=== PATIENT | female | born 1960 | race Caucasian/White ===

== ENCOUNTER 2017-04-28 09:23 | Emergency (ER) | payer OTHER ==
[~2017-04-28 09:23] MED LIST: LAMO100 PO; LORTA5 PO
[2017-04-28 09:25] VITALS: BP 142/81; PULSE 78; RESP 18; TEMP 97.5; O2SAT 98
[2017-04-28] MEDS ORDERED: ANXIETY MED (10:24)
[2017-04-28] MEDS ORDERED: LAMO100T PO (10:24)
--- NOTE | 2017-04-28 10:40 | PD ---
HPI Chief Complaint: Head Injury Time Seen by Provider: 10:29 Travel History International Travel<30 days: No Contact w/Intl Traveler<30days: No Traveled to known affect area: No History of Present Illness HPI This is a 56-year-old female who presents to the emergency department having had a large piece of plywood fall on top of her head yesterday. Since then she' s had a mild headache, constant, associated with some nausea and dizziness, with no difficulty walking or talking. She said she didn't lose consciousness at the time. Her neck is hurting. She is not on a blood thinners but she does have a history of prior traumatic brain injury. PFSH Past Medical History Asthma: No Blood Disorders: No Anxiety: Yes Depression: Yes Heart Rhythm Problems: No Cancer: No Cardiovascular Problems: No High Cholesterol: No Chemotherapy: No Chest Pain: No Congestive Heart Failure: No COPD: No Diabetes: No Endocrine: No Gastrointestinal Disorders: Yes Genitourinary: No Hiatal Hernia: Yes (UMBILICAL HERNIA-HAD IT REPAIRED) Immune Disorder: No Musculoskeletal: No Neurologic: No Psychiatric: No Reproductive: No Respiratory: No Radiation Therapy: No Seizures: Yes (PER PT LAST SEIZURE 2004) Sleep Apnea: No Thyroid Disease: No Tetanus Vaccination: < 5 Years ?: Not Past Surgical History Appendectomy: Yes Other Surgery: Yes (hernia) Social History Alcohol Use: Yes (OCCASIONALLY) Tobacco Use: Yes (OCCASIONALLY) Substance Use: No Allergies-Medications (Allergen,Severity, Reaction): Coded Allergies: No Known Allergies (Unverified Adverse Reaction, Unknown, 04/28/17) Reported Meds & Prescriptions Reported Meds & Active Scripts Active Reported [Anxiety Med] Lamotrigine 100 Mg Tab 100 Mg PO BID Review of Systems Except as stated in HPI: all other systems reviewed are Neg Physical Exam Narrative GENERAL:Well appearing, no acute distress SKIN: Large hematoma on the right upper forehead. HEAD: Atraumatic. Normocephalic. EYES: Pupils equal and round. No injection or drainage. ENT: Moist mucous membranes NECK: Focally tender along the mid cervical spine. CARDIOVASCULAR: Regular rate and rhythm. No murmur appreciated. RESPIRATORY: Clear to auscultation. Breath sounds equal bilaterally. GASTROINTESTINAL: Abdomen soft, non-tender, nondistended. MUSCULOSKELETAL: No obvious deformities. NEUROLOGICAL: Awake and alert. No obvious cranial nerve deficits. No dysarthria or aphasia. Moving all extremities. PSYCHIATRIC: Appropriate mood and affect; insight and judgment normal. Data Data Last Documented VS Vital Signs Date Time Temp Pulse Resp B/P (MAP) Pulse Ox O2 Delivery O2 Flow Rate FiO2 04/28/17 09:25 97.5 78 18 142/81 (101) [address] Brain W/O Iv Contrast(Rout) (04/28/17 ) Ct Cerv Spine W/O Contrast (04/28/17 ) Acetaminophen (Tylenol) (04/28/17 10:45) MDM Medical Decision Making Medical Screen Exam Complete: Yes Emergency Medical Condition: Yes Interpretation(s) Last [address] 04/28/17 0000 Signed Impressions: Service Date/Time: Friday, April 28, 2017 11:14 - CONCLUSION: 1. No acute intracranial abnormality is identified. 2. There is encephalomalacia in the frontal lobe bilaterally, left greater than right. This could be related to prior trauma or infarct. Poli Banks MD Cervical Spine CT 04/28/17 0000 Signed Impressions: Service Date/Time: Friday, April 28, 2017 11:14 - CONCLUSION: No acute cervical spine abnormality is identified. Degenerative changes are present. Poli Banks MD Differential Diagnosis Intracranial hemorrhage, cervical spine fracture, cervical sprain, hematoma Narrative Course This is a 56-year-old female who presents to the emergency department having had a large piece of plywood fell on her head yesterday. Given the axial loading nature of the injury a CT of the cervical spine was obtained which was reassuring. CT of the head was obtained which demonstrates evidence of encephalomalacia which is likely secondary to the patient's history of traumatic brain injury but is otherwise reassuring with no evidence of acute bleed. Patient will be discharged home. Diagnosis Primary Impression: Closed head injury Qualified Codes: S09.90XA - Unspecified injury of head, initial encounter Patient Instructions: General Instructions Additional Instructions: If you develop headache, difficulty walking, difficulty talking, weakness, numbness, lightheadedness or severe pain return to the emergency department. If you are not improved in 2 days follow up with your primary care physician without fail. Med/Other Pt SpecificInfo: No Change to Meds Disposition: 01 DISCHARGE HOME Condition: Stable Argelia Cavazos MD Apr 28, 2017 10:40
[2017-04-28] MEDS ORDERED: ACETAMINOPHEN 500 MG CPLT PO ONE (10:45)
--- NOTE | 2017-04-28 11:35 | RADRPT ---
EXAM DATE/TIME: 04/28/2017 11:14 [facility] COMPARISON: No previous studies available for comparison. INDICATIONS : Plywood fell on patients head yesterday RADIATION DOSE: 29.75 CTDIvol (mGy) MEDICAL HISTORY : Seizures. Hernia, hiatal. SURGICAL HISTORY : None. ENCOUNTER: Initial ACUITY: 1 day PAIN SCALE: 2/10 LOCATION: cranial TECHNIQUE: Multiple contiguous axial images were obtained of the head. Using automated exposure control and adj ustment of the mA and/or kV according to patient size, radiation dose was kept as low as reasonably a chievable to obtain optimal diagnostic quality images. DICOM format image data is available electro nically for review and comparison. FINDINGS: CEREBRUM: There is encephalomalacia in the left frontal lobe and right orbitofrontal cortex. There is mild asso ciated ex vacuo dilatation of the left frontal horn. Ventricles are otherwise normal. No evidence of midline shift, mass lesion, hemorrhage or acute infarction. No extra-axial fluid collections are se en. POSTERIOR FOSSA: The cerebellum and brainstem are intact. The 4th ventricle is midline. The cerebellopontine angle i s unremarkable. EXTRACRANIAL: There is minimal mucoperiosteal thickening within the sphenoid sinus. Remaining visualized sinuses ar e clear. SKULL: The calvaria is intact. No evidence of skull fracture. CONCLUSION: 1. No acute intracranial abnormality is identified. 2. There is encephalomalacia in the frontal lobe bilaterally, left greater than right. This could be related to prior trauma or infarct. Poli Banks MD on April 28, 2017 at 11:30 Board Certified Radiologist. This report was verified electronically.
--- NOTE | 2017-04-28 11:38 | RADRPT ---
EXAM DATE/TIME: 04/28/2017 11:14 [facility] COMPARISON: No previous studies available for comparison. INDICATIONS : Plywood fell on patients head yesterday RADIATION DOSE: 13.82 CTDIvol (mGy) MEDICAL HISTORY : Seizures. Hernia, hiatal. SURGICAL HISTORY : None. ENCOUNTER: Initial ACUITY: 1 day PAIN SCALE: 2/10 LOCATION: neck TECHNIQUE: Volumetric scanning of the cervical spine was performed. Multiplanar reconstructions in the sagittal, coronal and oblique axial planes were performed. Using automated exposure control and adjustment o f the mA and/or kV according to patient size, radiation dose was kept as low as reasonably achievable to obtain optimal diagnostic quality images. DICOM format image data is available electronically f or review and comparison. FINDINGS: There is normal sagittal spine alignment of the cervical spine. No anterolisthesis or retrolisthesis is present. The atlantoaxial relationship is within normal limits. There is no prevertebral soft tiss ue swelling present. No fracture or dislocation is identified. There is degenerative disc disease at C4-C5 through C6-C7. The visualized portions of the posterior fossa, paraspinous soft tissues, and upper lung zones demons trate no acute abnormality. CONCLUSION: No acute cervical spine abnormality is identified. Degenerative changes are present. Poli Banks MD on April 28, 2017 at 11:33 Board Certified Radiologist. This report was verified electronically.
[2017-04-28 12:28] VITALS: BP 139/87
== END 2017-04-28 19:36 | disposition home or self-care (01) ==
LOC: NEPD 09:23
DX: S09.90XA Unspecified injury of head, initial encounter (principal); S00.83XA Contusion of other part of head, initial encounter; M50.321 Other cervical disc degeneration at C4-C5 level; M50.323 Other cervical disc degeneration at C6-C7 level; R11.0 Nausea; R42 Dizziness and giddiness; R56.9 Unspecified convulsions; W22.8XXA Striking against or struck by other objects, initial encounter; Z87.820 Personal history of traumatic brain injury
CPT/HCPCS: 70450; 72125; 99284